=== PATIENT | male | born 1995 | race Caucasian/White ===

== ENCOUNTER 2018-06-10 08:02 | Emergency (ER) | payer BC ==
[2018-06-10 08:50] LABS: #Eosinphils 0.1 thou/uL (0.0-0.7); #Lymphocytes 2.1 thou/uL (1.20-3.40); #Neutrophils 6.8 thou/uL (1.40-6.50); %Basophils 0.4 % (0.0-1.0); %Eosinophils 1.5 % (0.0-10.0); %Lymphocytes 21.2 % (21.0-51.0); %Monocytes 10.1 % (0.0-10.0); %Neutrophils 66.8 % (42.0-75.0); Hemoglobin 15.5 g/dL (14.0-18.0); Mean Corpuscular HGB CONC 32.7 g/dL (32.0-36.0); Mean Corpuscular Hemoglobin 27.8 pg (27.0-31.0); Mean Corpuscular Volume 84.8 fL (78.0-98.0); Mean Platelet Volume 6.8 fL (7.4-10.4); Platelet Count 290 thou/uL (130-400); RBC Distribution Width 12.4 % (11.5-14.5); Red Blood Cell (RBC) Count 5.58 mill/uL (4.70-6.10); White Blood Cell (WBC) Count 10.1 thou/uL (4.8-10.8)
[2018-06-10 09:03] LABS: ALT (SGPT) 70 U/L (8-55); AST (SGOT) 37 U/L (5-34); Albumin 4.8 g/dL (3.5-5.0); Alkaline Phosphatase 156 U/L (40-150); Anion Gap 13 mmol/L (10-20); BUN (Urea Nitrogen) 9 mg/dL (8.9-20.6); Bilirubin, Total 1.2 mg/dL (0.2-1.2); Calc. Creatinine Clearance 0 mL/min (70-130); Calcium 9.8 mg/dL (7.8-10.44); Carbon Dioxide 28 mmol/L (22-29); Chloride 99 mmol/L (98-107); Estimated GFR-MDRD Greater than 90; Globulin 4.2 g/dL (2.4-3.5); Glucose 96 mg/dL (70-105); Lipase 25 U/L (8-78); Potassium 4.1 mmol/L (3.5-5.1); Sodium 136 mmol/L (136-145)
--- NOTE | 2018-06-10 09:07 | CT ---
CT ABDOMEN WITH CONTRAST CT PELVIS WITH CONTRAST: DATE: 06-10-18 HISTORY: 22-year-old male with right sided abdominal pain. TECHNIQUE: IV injection of iodinated contrast media: 100 ml of Isovue 370 Oral contrast media: Not administered FINDINGS: Between the inferior tip of the right lobe of the liver, and the lateral surface of the ascending col on near the hepatic flexure, there is a region of fat stranding representing edema, measuring approxi mately 2 x 2 x 5 cm consistent with epiploic appendagitis. The retrocecal appendix distal tip reaches this area, but is not the cause of the inflammation. The appendix is normal in caliber. There are multiple enlarged mesenteric lymph nodes throughout the abdominal cavity, centrally and in the right side of the abdomen. There is no abscess, pneumoperitoneum, or ascites. The bilateral kidne ys, abdominal aorta, adrenals, pancreas, liver, and spleen are normal. No pericholecystic edema. Lung bases are clear. IMPRESSION: 1. Prominent inflammatory process in the right side of the abdomen is evidence for epiploic appendagi tis involving the ascending colon/hepatic flexure. 2. Mesenteric lymphadenitis. KENZIE Clemons POS: MARELY
== END 2018-06-10 09:37 | disposition home or self-care (01) ==
LOC: ERS 08:02
DX: K63.89 Other specified diseases of intestine (principal); I10 Essential (primary) hypertension
CPT/HCPCS: 74177; 80053; 83690; 85025